=== PATIENT | male | born 2000 | race Caucasian/White ===

== ENCOUNTER 2019-01-24 21:19 | Emergency (ER) | payer MEDICAID ==
[2019-01-24] MEDS: SOD CHLORIDE 0.9% 1,000 ML IV (23:12)
[2019-01-24] MEDS: KETOROLAC 30 MG INJ IV (23:15)
[2019-01-24] MEDS: ONDANSETRON 4 MG INJ IV (23:15)
[2019-01-24] MEDS: MECLIZINE 12.5 MG TAB PO (23:15)
== END 2019-01-25 00:42 | disposition home or self-care (01) ==
LOC: E/R 01-25 00:42
DX: F10.120 Alcohol abuse with intoxication, uncomplicated (principal); R51 Headache; R11.2 Nausea with vomiting, unspecified
CPT/HCPCS: 96374; 96375; 99284-25; J1885